=== PATIENT | male | born 1980 | race Two or more races ===

== ENCOUNTER 2023-02-07 13:06 | Emergency (ER) | payer SELFPAY ==
[2023-02-07] MEDS ORDERED: Morphine 4 MG/ML Syringe IM ONE (13:18)
[2023-02-07] MEDS ORDERED: Diphtheria,Pertussis(Acell),Tetanus Vaccine 0.5 ML Syringe IM ONE (13:18)
[2023-02-07] MEDS ORDERED: Naloxone 2 MG/2 ML Syringe IVPUSH PRN (13:18)
[2023-02-07] MEDS ORDERED: Ibuprofen 400 MG Tab PO ONE (13:19)
[2023-02-07] MEDS ORDERED: Take Home: Levofloxacin 500 MG Tab, 3 Tab Pack PO ONE (15:40)
== END 2023-02-07 15:11 | disposition home or self-care (01) ==
LOC: DL.ED 13:06
DX: S59.912A Unspecified injury of left forearm, initial encounter (principal); W22.8XXA Striking against or struck by other objects, initial encounter
CPT/HCPCS: 73090; 73100; 73120; 90471; 90715; 96372; 99282; 99283; A9270; J2270